=== PATIENT | male | born 1970 | race Caucasian/White ===

== ENCOUNTER 2020-01-20 20:27 | Inpatient (IN) | payer MEDICAID ==
[~2020-01-20] VITALS: Ht 175.3 cm; Wt 161.2 kg
[2020-01-20] MEDS ORDERED: SODIUM CHLORIDE FLUSH 10ML SYR IVF ONE (20:30)
[2020-01-20] MEDS ORDERED: ASPIRIN 81 MG TABLET CHEW PO ONE (20:30)
--- NOTE | 2020-01-20 20:43 | NUR ---
BIB [facility] FROM HOME. PT C/O SHAKING AND TREMBLING HANDS FROM ETOH WITHDRAWL. PT USUALLY DRINK "HANDLE ETOH/DAY" X 10 YEARS, TODAY HE DRANK LESS. PT STATES SHAKING STARTED ABOUT 1600 TODAY. [facility]: 20 RAC, 4 ZOFRAN, 500ML NS. PT CONNECTED TO MONITORING. EKG COMPLETE. XRAY COMPLETE. FALL PRECAUTIONS IN PLACE. PT GIVEN ICE CHIPS, OK PER PROVIDER.
[2020-01-20] MEDS ORDERED: ONDANSETRON 2MG/ML, 2ML ONE (20:46)
[2020-01-20] MEDS ORDERED: LORazepam 2 MG/ML, 1ML ONE ×2 (20:47→21:41)
[2020-01-20] MEDS ORDERED: ASPIRIN 81 MG TABLET CHEW ONE (20:47)
[2020-01-20] MEDS ORDERED: ONDANSETRON 2MG/ML, 2ML IVPush ONE (21:00)
[2020-01-20] MEDS ORDERED: PLEASE ENTER ALLERGIES MC SCH (21:00)
[2020-01-20] MEDS ORDERED: LORazepam 2 MG/ML, 1ML IVPush ONE ×3 (21:00→23:30)
[2020-01-20] MEDS ORDERED: PLEASE ENTER HEIGHT AND WEIGHT MC SCH (21:00)
[2020-01-20 21:05] LABS: BASOPHILS # (AUTO) 0.04 x10^3/uL (0-0.1); BASOPHILS % (AUTO) 1 % (0-1); EOSINOPHILS % (AUTO) 2 % (1-7); LYMPHOCYTES % (AUTO) 38 % (22-44); MD NO; MEAN CORPUSCULAR HEMOGLOBIN 32.5 pg (27.5-34.5); MEAN CORPUSCULAR HGB CONC 33.4 g/dL (33.2-36.2); MEAN CORPUSCULAR VOLUME 97.3 fL (81-97); MEAN PLATELET VOLUME 7.3 fL (7.4-10.4); MONOCYTES # (AUTO) 0.63 x10^3/uL (0.2-0.8); MONOCYTES % (AUTO) 10 % (2-9); NEUTROPHILS % (AUTO) 50 % (42-75); PLATELET COUNT 310 x10^3/uL (130-400); RED BLOOD COUNT 4.74 x10^6/uL (4.38-5.82); RED CELL DISTRIBUTION WIDTH 16.8 % (9.4-14.8)
[2020-01-20 21:13] LABS: ALANINE AMINOTRANSFERASE 116 U/L (12-78); ALBUMIN 3.5 g/dL (3.4-5.0); ANION GAP 15 mmol/L (5-15); CHLORIDE 106 mmol/L (98-107); CREATININE 0.78 mg/dL (0.7-1.3)
[2020-01-20 21:18] LABS: ALKALINE PHOSPHATASE 71 U/L (45-117); BILIRUBIN,TOTAL 0.5 mg/dL (0.2-1.0); TOTAL PROTEIN 7.3 g/dL (6.4-8.2); TROPONIN I < 0.015 ng/mL (0.000-0.045)
--- NOTE | 2020-01-20 21:18 | NUR ---
PT AMBULATED TO RESTROOM WITH STEADY GAIT.
--- NOTE | 2020-01-20 21:20 | NUR ---
ALL RESULTS ARE BACK AT THIS TIME. CHART UP FOR RECHECK.
--- NOTE | 2020-01-20 21:25 | NUR ---
PT NOTIFIED OF CTA. PT GOING TO CT.
[2020-01-20] MEDS ORDERED: THIAMINE 100MG TABLET ONE (21:40)
--- NOTE | 2020-01-20 21:47 | NUR ---
PT C/O STILL FEELING SHAKEY. PROVIDER NOTIFIED. MEDS ADMIN PER NOV. PT RESTING ON GURNEY.
--- NOTE | 2020-01-20 21:50 | NUR ---
ALL RESULTS ARE BACK AT THIS TIME. CHART UP FOR RECHECK.
--- NOTE | 2020-01-20 21:56 | NUR ---
PT PLACED ON 2L OXYGEN VIA NC, D/T OXYGEN LEVEL 88% RA. PROVIDER NOTIFIED.
[2020-01-20] MEDS ORDERED: THIAMINE 100MG TABLET PO ONE (22:00)
[2020-01-20] MEDS ORDERED: OMNIPAQUE 350 MG/ML, 100ML BOTTLE ONE (23:00)
[2020-01-20] MEDS ORDERED: AZITHROMYCIN 500 MG in SODIUM CHLORIDE 0.9% 250 ML IV ONE (23:30)
[2020-01-21] VITALS (8 sets, daily range): BP systolic 136–180; BP diastolic 81–98
--- NOTE | 2020-01-21 00:05 | NUR ---
REPORT GIVEN TO ERIN LOZADA.
--- NOTE | 2020-01-21 00:07 | NUR ---
REPORT OF PT FROM KIERRA LOPEZ AND ASSUMING CARE OF PT AT THIS TIME.
--- NOTE | 2020-01-21 00:13 | NUR ---
task rn: pt medicated per nov. vss. no needs expressed at this time. awaiting room assignment.
[2020-01-21] MEDS ORDERED: LORazepam 2 MG/ML, 1ML ONE (00:57)
--- NOTE | 2020-01-21 00:59 | NUR ---
PT MEDICATED PER MAR FOR ETOH W/D SYMTPOMS.
[2020-01-21] MEDS ORDERED: LABETALOL 5MG/ML, 20ML IVPush PRN (01:00)
[2020-01-21] MEDS ORDERED: LORazepam 2 MG/ML, 1ML IV PRN (01:00)
[2020-01-21] MEDS ORDERED: CHLORDIAZEPOXIDE 25 MG CAPSULE PO PRN ×3 (01:00)
[2020-01-21] MEDS ORDERED: ONDANSETRON 2MG/ML, 2ML IVPush PRN (01:00)
[2020-01-21] MEDS ORDERED: TRAZODONE 50MG TABLET PO PRN (01:00)
[2020-01-21] MEDS ORDERED: ACETAMINOPHEN 325 MG TABLET PO PRN (01:00)
--- NOTE | 2020-01-21 01:15 | NUR ---
PT MOVED VIA GURNEY FROM ED ROOM 24 TO ED ROOM 37.
--- NOTE | 2020-01-21 02:34 | NUR ---
Lady bazzi in [facility] - 01/21/20 at 0249 by MJ REPORT FROM KIERRA KHAN. ASSUMING CARE AT THIS TIME.
--- NOTE | 2020-01-21 02:49 | NUR ---
REPORT FROM KIERRA KHAN. ASSUMING CARE AT THIS TIME.
--- NOTE | 2020-01-21 02:53 | NUR ---
REPORT OF PT TO KIERRA GARCIA. ALL QUESTIONS ANSWERED.
[2020-01-21] MEDS ORDERED: CHLORDIAZEPOXIDE 25 MG CAPSULE ONE ×2 (02:54→06:37)
[2020-01-21] MEDS: CHLORDIAZEPOXIDE 25 MG CAPSULE PO SCH ×4 (03:01→18:41)
--- NOTE | 2020-01-21 03:03 | NUR ---
pt resting in room with lights dimmed. pt remains tachy, all other vss. pt medicated per nov. no needs expressed at this time. awaiting room assignment.
--- NOTE | 2020-01-21 04:49 | NUR ---
pt up self to rr with steady gait without o2. pt tolerated well. o2 reapplied after rr for ra o2 sat 84% wtih recovery to >94% within 2 minutes. pt remains tachy, all other vss. no needs expressed at this time. awaiting room assignment.
[2020-01-21 05:12] LABS: BASOPHILS # (AUTO) 0.06 x10^3/uL (0-0.1); BASOPHILS % (AUTO) 1 % (0-1); EOSINOPHILS # (AUTO) 0.13 x10^3/uL (0-0.4); EOSINOPHILS % (AUTO) 2 % (1-7); LYMPHOCYTES # (AUTO) 2.47 x10^3/uL (1-3.4); LYMPHOCYTES % (AUTO) 32 % (22-44); MD NO; MEAN CORPUSCULAR HEMOGLOBIN 32.5 pg (27.5-34.5); MEAN CORPUSCULAR VOLUME 98.4 fL (81-97); MEAN PLATELET VOLUME 7.2 fL (7.4-10.4); MONOCYTES # (AUTO) 0.84 x10^3/uL (0.2-0.8); MONOCYTES % (AUTO) 11 % (2-9); NEUTROPHILS # (AUTO) 4.36 x10^3/uL (1.8-6.8); NEUTROPHILS % (AUTO) 55 % (42-75); PLATELET COUNT 281 x10^3/uL (130-400); RED BLOOD COUNT 4.76 x10^6/uL (4.38-5.82)
[2020-01-21 05:22] LABS: ANION GAP 11 mmol/L (5-15); CALCIUM 8.3 mg/dL (8.5-10.1); CHLORIDE 106 mmol/L (98-107); CREATININE 0.74 mg/dL (0.7-1.3)
--- NOTE | 2020-01-21 06:19 | NUR ---
pt resting in room, watching tv with lights dimmed. pt remains tachy, all other vss on 2lnc. pt reports CIWA score of 0, stating that the "librium really helped." no needs expressed at this time. breakfast tray ordered. awaiting bed assignment.
--- NOTE | 2020-01-21 06:43 | NUR ---
pt medicated per mar. no needs expressed. vss. awaiting breakfast tray and room assignment.
--- NOTE | 2020-01-21 06:54 | NUR ---
TOOK REPORT FROM FERNANDEZ MILLER RN, ASSUME CARE AT THIS TIME.
--- NOTE | 2020-01-21 06:54 | NUR ---
report to KIERRA Matamoros.
[2020-01-21] MEDS: ENOXAPARIN 30 MG/0.3 ML SQ SCH ×2 (09:28→20:31)
[2020-01-21] MEDS: DOXYCYCLINE 100MG TABLET PO SCH ×2 (09:28→20:31)
[2020-01-21 10:10] LABS: AMPHETAMINE SCREEN, URINE Negative (Negative); BARBITURATE SCREEN, URINE Negative (Negative); BENZODIAZEPINE SCREEN, URINE Positive (Negative); CANNABINOID SCREEN, URINE Positive (Negative); COCAINE SCREEN, URINE Negative (Negative); METHADONE SCREEN, URINE Negative (Negative); OPIATE SCREEN, URINE Negative (Negative)
[2020-01-21] MEDS: CEFTRIAXONE PMX 2GM/50ML 50 ML IV SCH (10:14)
[2020-01-21] MEDS: CHLORDIAZEPOXIDE 10 MG CAPSULE PO PRN (10:14)
[2020-01-21] MEDS: THIAMINE 100 MG in DEXTROSE 5% 50 ML IVPB SCH (11:54)
[2020-01-21] MEDS ORDERED: METOPROLOL TARTRATE 50 MG TAB PO SCH (12:00)
[2020-01-21] MEDS ORDERED: AMIT50TA PO (12:01)
[2020-01-21] MEDS ORDERED: METO-290 PO (12:01)
[2020-01-21] MEDS ORDERED: LISI-170 PO (12:01)
[2020-01-21] MEDS ORDERED: AMLO10TA8 PO (12:01)
[2020-01-21] MEDS ORDERED: TRAZ50TA66 PO (12:02)
[2020-01-21] MEDS ORDERED: GABA600T7 PO (12:04)
[2020-01-21] MEDS: LISINOPRIL 20 MG TABLET PO SCH (12:44)
[2020-01-21] MEDS: AMLODIPINE 10 MG TAB PO SCH (12:44)
[2020-01-21] MEDS ORDERED: LOPERAMIDE 2 MG CAPSULE PO PRN (13:00)
[2020-01-21] MEDS: GABAPENTIN 300 MG CAPSULE PO SCH ×2 (16:04→20:31)
[2020-01-21 17:36] LABS: FREE T4 (FREE THYROXINE) 0.83 ng/dL (0.76-1.46); TROPONIN I < 0.015 ng/mL (0.000-0.045)
[2020-01-21] MEDS: METOPROLOL SUCCINATE 100 MG TAB.ER.24H PO SCH (18:05)
[2020-01-21] MEDS: AMITRIPTYLINE 50 MG TABLET PO SCH (20:31)
[2020-01-21 22:45] LABS: TROPONIN I < 0.015 ng/mL (0.000-0.045)
[2020-01-22] MEDS: CHLORDIAZEPOXIDE 25 MG CAPSULE PO SCH ×4 (01:04→20:17)
[2020-01-22 03:15] VITALS: BP 152/98
[2020-01-22 04:56] LABS: BASOPHILS # (AUTO) 0.08 x10^3/uL (0-0.1); BASOPHILS % (AUTO) 1 % (0-1); EOSINOPHILS # (AUTO) 0.26 x10^3/uL (0-0.4); EOSINOPHILS % (AUTO) 3 % (1-7); LYMPHOCYTES # (AUTO) 1.44 x10^3/uL (1-3.4); LYMPHOCYTES % (AUTO) 19 % (22-44); MD NO; MEAN CORPUSCULAR HEMOGLOBIN 33.5 pg (27.5-34.5); MEAN CORPUSCULAR HGB CONC 33.7 g/dL (33.2-36.2); MEAN CORPUSCULAR VOLUME 99.3 fL (81-97); MEAN PLATELET VOLUME 7.6 fL (7.4-10.4); MONOCYTES # (AUTO) 0.84 x10^3/uL (0.2-0.8); MONOCYTES % (AUTO) 11 % (2-9); NEUTROPHILS # (AUTO) 4.98 x10^3/uL (1.8-6.8); NEUTROPHILS % (AUTO) 66 % (42-75); PLATELET COUNT 243 x10^3/uL (130-400); RED BLOOD COUNT 4.44 x10^6/uL (4.38-5.82); RED CELL DISTRIBUTION WIDTH 16.4 % (9.4-14.8)
[2020-01-22 04:57] LABS: ANION GAP 9 mmol/L (5-15); CALCIUM 8.5 mg/dL (8.5-10.1); CHLORIDE 103 mmol/L (98-107)
[2020-01-22 05:01] LABS: CHOL/HDL RATIO 2.1; CHOLESTEROL, TOTAL 200 mg/dL (140-239); HDL CHOL % 48 % (26-37); HDL CHOLESTEROL (DIRECT) 95 mg/dL (40-60); LDL CHOLESTEROL,CALCULATED 70 mg/dL (54-169); LDL/HDL RATIO 0.7 (0.5-3.0); TRIGLYCERIDES 177 mg/dL (50-200); VLDL CHOLESTEROL 35 mg/dL (0-25)
[2020-01-22] MEDS: METOPROLOL SUCCINATE 100 MG TAB.ER.24H PO SCH ×2 (05:32→17:25)
[2020-01-22] MEDS: CHLORDIAZEPOXIDE 10 MG CAPSULE PO PRN (05:47)
[2020-01-22 08:53] VITALS: BP 163/87
[2020-01-22] MEDS: LISINOPRIL 20 MG TABLET PO SCH (09:26)
[2020-01-22] MEDS: ENOXAPARIN 30 MG/0.3 ML SQ SCH ×2 (09:26→20:16)
[2020-01-22] MEDS: CEFTRIAXONE PMX 2GM/50ML 50 ML IV SCH (09:26)
[2020-01-22] MEDS: DOXYCYCLINE 100MG TABLET PO SCH ×2 (09:26→20:17)
[2020-01-22] MEDS: GABAPENTIN 300 MG CAPSULE PO SCH ×3 (09:26→20:17)
[2020-01-22] MEDS: AMLODIPINE 10 MG TAB PO SCH (09:26)
[2020-01-22] MEDS: THIAMINE 100 MG in DEXTROSE 5% 50 ML IVPB SCH (10:36)
[2020-01-22 11:38] LABS: CLOSTRIDIUM DIFFICILE ANTIGEN NEGATIVE; CLOSTRIDIUM DIFFICILE TOXIN NEGATIVE (Negative)
[2020-01-22 14:32] VITALS: BP 168/91
[2020-01-22 17:24] VITALS: BP 167/89
[2020-01-22] MEDS: AMITRIPTYLINE 50 MG TABLET PO SCH (20:17)
[2020-01-22 20:30] VITALS: BP 147/77
[2020-01-23 02:13] VITALS: BP 125/82
[2020-01-23] MEDS: CHLORDIAZEPOXIDE 25 MG CAPSULE PO SCH ×2 (02:13→08:59)
[2020-01-23 05:16] LABS: BASOPHILS # (AUTO) 0.06 x10^3/uL (0-0.1); BASOPHILS % (AUTO) 1 % (0-1); EOSINOPHILS # (AUTO) 0.35 x10^3/uL (0-0.4); EOSINOPHILS % (AUTO) 6 % (1-7); LYMPHOCYTES # (AUTO) 1.83 x10^3/uL (1-3.4); LYMPHOCYTES % (AUTO) 29 % (22-44); MD NO; MEAN CORPUSCULAR HEMOGLOBIN 32.6 pg (27.5-34.5); MEAN CORPUSCULAR HGB CONC 33.2 g/dL (33.2-36.2); MEAN CORPUSCULAR VOLUME 98.3 fL (81-97); MEAN PLATELET VOLUME 7.7 fL (7.4-10.4); MONOCYTES # (AUTO) 0.65 x10^3/uL (0.2-0.8); MONOCYTES % (AUTO) 10 % (2-9); NEUTROPHILS # (AUTO) 3.41 x10^3/uL (1.8-6.8); NEUTROPHILS % (AUTO) 54 % (42-75); PLATELET COUNT 225 x10^3/uL (130-400); RED BLOOD COUNT 4.63 x10^6/uL (4.38-5.82); RED CELL DISTRIBUTION WIDTH 16.3 % (9.4-14.8)
[2020-01-23 05:34] LABS: CHLORIDE 104 mmol/L (98-107)
[2020-01-23 05:38] LABS: ANION GAP 11 mmol/L (5-15); CALCIUM 8.7 mg/dL (8.5-10.1); CREATININE 0.65 mg/dL (0.7-1.3)
[2020-01-23] MEDS: METOPROLOL SUCCINATE 100 MG TAB.ER.24H PO SCH (05:38)
[2020-01-23] MEDS: LISINOPRIL 20 MG TABLET PO SCH (09:00)
[2020-01-23] MEDS: DOXYCYCLINE 100MG TABLET PO SCH (09:00)
[2020-01-23] MEDS: AMLODIPINE 10 MG TAB PO SCH (09:01)
[2020-01-23] MEDS: CEFTRIAXONE PMX 2GM/50ML 50 ML IV SCH (09:01)
[2020-01-23] MEDS: GABAPENTIN 300 MG CAPSULE PO SCH (09:01)
[2020-01-23] MEDS: ENOXAPARIN 30 MG/0.3 ML SQ SCH (09:02)
[2020-01-23 09:53] VITALS: BP 125/82
[2020-01-23] MEDS: THIAMINE 100 MG in DEXTROSE 5% 50 ML IVPB SCH (10:46)
[2020-01-23] MEDS ORDERED: AMOX1TAB64 PO (14:29)
== END 2020-01-23 12:00 | disposition left against medical advice (07) | DRG 193 ==
LOC: ED 21:49 → EDIP 23:23 → 4NW 01-21 08:45
PROVIDERS: ADMIT Family Medicine; ATTEND Hospitalist
DX: J12.89 Other viral pneumonia (principal); J96.01 Acute respiratory failure with hypoxia; F10.239 Alcohol dependence with withdrawal, unspecified; E66.2 Morbid (severe) obesity with alveolar hypoventilation; Z68.43 Body mass index [BMI] 50.0-59.9, adult; D75.89 Other specified diseases of blood and blood-forming organs; F10.229 Alcohol dependence with intoxication, unspecified; F12.10 Cannabis abuse, uncomplicated; F17.210 Nicotine dependence, cigarettes, uncomplicated; I10 Essential (primary) hypertension; K76.0 Fatty (change of) liver, not elsewhere classified; N62 Hypertrophy of breast; Y90.8 Blood alcohol level of 240 mg/100 ml or more; Z82.49 Family history of ischemic heart disease and other diseases of the circulatory system; I25.2 Old myocardial infarction; Z03.818 Encounter for observation for suspected exposure to other biological agents ruled out; Z79.899 Other long term (current) drug therapy
CPT/HCPCS: 36415; 71045; 71275; 80048; 80053; 80061; 80307; 82728; 83615; 83690; 83735; 83880; 84100; 84145; 84439; 84443; 84484; 85025; 87324; 93005; 93308; 93321; 93325; 96374; 96375; 96376; 99291; G0378; J0456; J0696; J1650; J2405; J3411; Q9967; J2060; J7050; U0001